=== PATIENT | female | born 1990 | race Hispanic/Latino ===

== ENCOUNTER 2020-08-23 04:17 | Inpatient (IN) | payer OTHER ==
[2020-08-22 11:07] LABS: Absolute Lymphocytes (CBC) 1.7 K/uL (0.7-4.9); Basophils % 0.7 % (0-1.3); Lymphocytes % 23.8 % (15.3-44.8); MPV 9.8 fL (7.6-11.3); RBC Red Blood Cell Count 3.95 M/uL (3.86-4.86)
[2020-08-22 11:10] LABS: Urine Appearance CLEAR; Urine Bilirubin NEGATIVE (NEG); Urine Blood NEGATIVE (NEG); Urine Color YELLOW; Urine Glucose NEGATIVE (NEG); Urine Protein NEGATIVE (NEG); Urine Urobilinogen 0.2 mg/dL (0.2-1.0)
[2020-08-22 11:12] LABS: Protime INR 0.98
[2020-08-22 11:27] LABS: Urine RBC <5 /HPF (NONE SEEN)
[2020-08-22 11:28] LABS: Urine Bacteria <20 /HPF (<20)
[~2020-08-23 04:17] MED LIST: CEFAZOLIN 2 GM in NA CHLORIDE 0.9% 100 ML IVPB SCH; CEFAZOLIN/SWI 2gm 2 GM/20 ML SYR IV SCH; METOCLOPRAMIDE 10 MG/2mL INJ IV SCH; NA CIT/CITRIC AC 30 ML ORAL UDC PO ONE
--- OUTSIDE RECORDS SUMMARY | 2020-08-23 04:20 | XMS REPORT | Continuity of Care Document ---
:1990 Author Organization [facility] t Address [address] [place] [address] Care Team Providers Name Role Phone Doctor Unassigned, Name Attending Clinician Unavailable Holland Ndiaye Attending Clinician Problems This patient has no known problems. Allergies, Adverse Reactions, Alerts This patient has no known allergies or adverse reactions. Medications This patient has no known medications. Procedures This patient has no known procedures. Encounters Start End Encounter Admission Attending Care Care Encounter Source Date/Time Date/Time Type Type Clinicians Facility Department ID 2020-04-05 2020-04-05 Orders Doctor NING [id number] 00:00:00 00:00:00 Only Unassigned, JOSEPHINE [id number] Harman [facility] [id number] [id number] 2020-02-02 2020-02-02 Telemedici SANTOS Beckwith [id number] 12:49:38 14:06:47 ne Visit Demetrice Lino HANDBAG FRAMES INSPECTOR [id number] [facility] [id number] MATERNAL [id number] & CHILD 107 [facility] 2020-01-10 2020-01-10 Telephone SANTOS Beckwith [id number] 00:00:00 00:00:00 Demetrice C HANDBAG FRAMES INSPECTOR [id number] REGIONAL [id number] MATERNAL [id number] & CHILD 107 [facility] Results This patient has no known results.
[2020-08-23 05:17] VITALS: BMI 37.8
[2020-08-23 05:20] VITALS: O2SAT 100
[2020-08-23] MEDS ORDERED: Ringers Lactate 1,000 ML IV SCH (05:30)
[2020-08-23] MEDS ORDERED: Ringers Lactate 1,000 ML IV PRN (05:30)
[2020-08-23] MEDS ORDERED: CEFAZOLIN/SWI 2gm 2 GM/20 ML SYR ONE ×2 (05:46→15:58)
[2020-08-23] MEDS ORDERED: FAMOTIDINE 20 MG/2 ML VIAL IV ONE (06:00)
[2020-08-23] MEDS ORDERED: CARBOPROST TROME 250 MCG/ML IM ONE (07:13)
[2020-08-23] MEDS ORDERED: METHYLERGONOVINE 0.2MG/ML AMP IM ONE (07:13)
[2020-08-23] MEDS ORDERED: MORPHINE SULFATE/PF 1 MG/ML (10 ML AMP) ONE (07:30)
[2020-08-23] MEDS ORDERED: LIDOCAINE 1% MPF 5 ML VIAL ONE (07:31)
[2020-08-23] MEDS ORDERED: OXYTOCIN 10 UNIT/ML ML IV ONE ×2 (07:31→07:57)
[2020-08-23] MEDS ORDERED: BUPIVACAINE 0.75% (PF) 2 ML SP ONE (07:48)
[2020-08-23] MEDS ORDERED: Phenylephrine HCl 10 MG/ML 1 ML VIAL ONE (07:49)
[2020-08-23] MEDS ORDERED: NS 0.9% VIAL 10 ML ONE (07:49)
[2020-08-23] MEDS ORDERED: Oxycodone HCl/Acetaminophen 1 TAB TAB PO PRN (08:21)
[2020-08-23] MEDS ORDERED: ONDANSETRON 4 MG (ODT) TAB PO PRN (08:21)
[2020-08-23] MEDS ORDERED: KETOROLAC 30 MG/ML INJ IM PRN (08:21)
[2020-08-23] MEDS ORDERED: IBUPROFEN 200 MG TAB PO PRN (08:21)
[2020-08-23] MEDS ORDERED: ACETAMINOPHEN 500 MG TAB PO PRN ×2 (08:21)
[2020-08-23] MEDS ORDERED: CEFAZOLIN 1GM (PREMIX IV) 50 ML IV ONE (08:21)
[2020-08-23] MEDS ORDERED: BISACODYL 10 MG RECTAL SUPP PR PRN (08:21)
[2020-08-23] MEDS ORDERED: DIPHENHYDRAMINE 25 MG TAB/CAP PO PRN (08:21)
[2020-08-23] MEDS ORDERED: ONDANSETRON 4 MG/2 ML VIAL IV PRN (08:21)
[2020-08-23] MEDS ORDERED: METHYLERGONOVINE 0.2 MG TAB PO PRN (08:21)
[2020-08-23] MEDS ORDERED: OXYTOCIN/LR 20 UNIT/1,000 ML BAG IV SCH (09:00)
[2020-08-23] MEDS ORDERED: D5LR 1,000 ML with OXYTOCIN 20 UNIT IV SCH ×2 (09:00)
--- NOTE | 2020-08-23 09:07 | OP ---
Surgeon: Jose Antony MD Elsy Romero is a 30-year-old female, 3, para 2, for repeat section. Infection; bloo d loss; anesthetic complications; injury to bladder, bowel, ureter; postoperative complications; clot s in legs; and pneumonia discussed. The patient knows fully well this does not constitute all the po ssible problems that could occur during or following surgery. Dr. Parker for spinal block, Dr. Elif monique for assistant superintendent for curriculum surgeon. After prepping and draping, time-out was performed and Pfannenstiel inc ision was then created over the previous incision site. The incision was carried to the fascia. Sig nificant scarring was encountered as would be expected. Anterior and posterior fascial planes were d eveloped with both blunt and sharp dissection. Underlying rectus muscle . Peritoneum was v char thin and entered easily. Low transverse uterine incision created, a 7 pounds 1-ounce female was delivered without difficulties. Apgars 9 and 9. Cord blood specimen obtained. Placenta removed man ually. Uterus cleared of clot and blood exteriorized. Cervical os dilated with ring clamp. Uterus closed with a running lock stitch of 1 chromic followed by imbricating stitch of 1 chromic. Mild kieran rine hypotonus, 0.2 mg of Methergine IM as well as IV drip Pitocin, massage. Estimated blood loss 85 0-900 cc. Gutters clear of clot and blood. Uterus replaced in the peritoneal cavity. Suture line s howed no further bleeding. Rectus muscles reapproximated with 0 Vicryl, 2 stitches. Fascia closed w ith 1 PDS running from either angle to the midline. Subcutaneous tissue closed with 2-0 plain. Stap les used for the skin. 2 g of Ancef had been given preop. The patient tolerated all procedures well and transferred back to her room in good condition. Final Diagnoses: Repeat section, spinal block anesthesia, mild uterine hypotonus. NBC/MODL Voice ID: [id number] Report ID: [id number]
[2020-08-23] MEDS: METHYLERGONOVINE 0.2 MG TAB PO SCH ×3 (09:34→17:38)
[2020-08-23] MEDS ORDERED: INFLUENZA VACCINE (for 3y+) 0.5 ML DOSE IMVAC ONE (10:00)
[2020-08-23] MEDS ORDERED: CEFAZOLIN 2 GM in NA CHLORIDE 0.9% 100 ML IVPB ONE (15:42)
[2020-08-23] MEDS ORDERED: KETOROLAC 30 MG/ML INJ IV PRN (15:55)
[2020-08-24] MEDS ORDERED: MAGNESIUM HYDROXIDE 8% 30 ML PO PRN (08:21)
--- NOTE | 2020-08-24 10:35 | P.PN ---
Subjective Date of Service: 08/24/20 Chief Complaint: POD 1 s/p RLTCS. Doing well. Yamileth PO. Snider still in place. Subjective: Tolerating diet, Ambulating (No nausea, vomitting, chest pain, or palpitations) Review of Systems 10-point ROS is otherwise unremarkable Physical Examination - Vital Signs Temperature: 97.8 F Blood Pressure: 118/62 Pulse: 63 Respirations: 14 Pulse Ox (%): 97 - Physical Exam General: Alert, In no apparent distress, Oriented x3, Cooperative Neck: Supple Respiratory: Clear to auscultation bilaterally, Normal air movement Cardiovascular: Normal pulses, Regular rate/rhythm Gastrointestinal: Normal bowel sounds, Soft and benign, No rebound, No guarding Musculoskeletal: No clubbing, No swelling, No erythema, No tenderness Integumentary: No rashes Neurological: Normal speech, Normal reflexes 2+, Normal affect External genitalia: No edema Other Physical/Emotional Findings: Fundus firm, below umbilicus. Non tender. Incision clean, dry, intact. Normal lochia - Studies Laboratory Data (last 24 hrs) 08/23/20 16:18: Hct 35.1 L Medications List Reviewed: Yes Assessment And Plan - Plan Snider to be removed today. Saline lock IV. Can d/c IV fluids and if doing well, will remove IV later. Plan for discharge tomorrow Plan to discharge in: 48 Hours (plan to discharge on 08/25/2020) Time Spent Managing PTS Care (In Minutes): 15
[2020-08-24] MEDS: Oxycodone HCl/Acetaminophen 1 TAB TAB PO PRN ×2 (13:40→19:30)
[2020-08-25] MEDS: Oxycodone HCl/Acetaminophen 1 TAB TAB PO PRN ×2 (00:30→08:00)
[2020-08-25 08:19] VITALS: BP 107/56; TEMP 97.7
--- NOTE | 2020-08-25 08:55 | P.DS ---
Admission Date: 08/23/20 Discharge Date: 08/25/20 Disposition: ROUTINE DISCHARGE Discharge Condition: GOOD Reason for Admission: Patient was admitted on 08/23 for RLTCS. Post op course uncomplicated. Procedures: Repeat low transverse C/S Brief History of Present Illness: Pt was admitted for RLTCS. Uncomplicated surgery and post op course Hospital Course: Pt did well s/p RLTCS. Snider was discontinued on POD 1. She was voiding, ambulating, tolerating PO, and passing gas without issue Vital Signs/Physical Exam: Temp Pulse Resp BP Pulse Ox 97.7 F 61 17 107/56 L 97 08/25/20 08:00 08/25/20 08:00 08/25/20 08:00 08/25/20 08:00 08/24/20 12:00 General: Alert, In no apparent distress, Oriented x3 HEENT: Atraumatic Respiratory: Clear to auscultation bilaterally, Normal air movement Cardiovascular: Normal pulses, Regular rate/rhythm Gastrointestinal: Normal bowel sounds, Soft and benign, Non-distended, No tenderness Musculoskeletal: Swelling (mild 1+ b/l leg swelling; no calf tenderness ) Integumentary: No rashes Neurological: Normal speech Other Physical/Emotional Findings: Fundus firm, below umbilicus. Non tender. Incision clean, dry, intact. [place] in place No drainage. Normal lochia Laboratory Data at Discharge: WBC 7.1 K/uL (4.3-10.9) 08/22/20 10:49 Hgb 11.4 g/dL (12.0-15.0) L 08/22/20 10:49 Hct 35.1 % (36.0-45.0) L 08/23/20 16:18 Plt Count 208 K/uL (152-406) 08/22/20 10:49 PT 11.6 SECONDS (9.5-12.5) 08/22/20 10:49 INR 0.98 08/22/20 10:49 APTT 29.5 SECONDS (24.3-36.9) 08/22/20 10:49 Home Medications: Pnv Cmb#95/Ferrous Fumarate/FA [ Tablet] 1 each PO DAILY 01/28/13 Iron,Carb/Vit C/Vit B12/Folic [Iron 100 Plus Tablet] 1 each PO DAILY 08/23/20 Tramadol HCl [Ultram] 50 mg PO Q6H PRN 8 Days #30 tablet 08/25/20 New Medications: Tramadol HCl [Ultram] 50 mg PO Q6H PRN 8 Days #30 tablet PRN Reason: Pain Scale 8-10 (Severe) Followup: Freda Antony MD [Family Provider] - (Follow up with Dr. Antony next week for staple removal then in 6 weeks for post visit.) Time spent managing pt's care (in minutes): 15
--- NOTE | 2020-08-31 11:47 | PREOPHP ---
Date of Admission: 08/23/2020 This is the second dictation of the history and physical. This was done prior to the patient's admis debra. I want to document that the history and physical has been dictated and is apparently lost in t he . History Of Present Illness: 30-year-old 3, para 2, repeat section. Infection; bloo d loss; anesthetic complications; injury to bladder, bowel, ureter; postoperative complications; clot s in legs; and pneumonia discussed. Patient knows fully well this does not constitute all the possib le problems that could occur during or following surgery. Family History: Negative. Past Medical History: Basically negative other than . Allergies: NO ALLERGIES. Medications: No vitamins prior to admission. Physical Examination: HEENT: Clear. Pupils equal, round, reactive to light and accommodation. Conjunctivae well perfused . No oral, lingual, or buccal lesions. Chest and Lungs: Clear. Heart: Without murmurs, thrills, heaves, or rubs. Breasts: Without masses. Abdomen: Term size, baby is vertex. Extremities: Clear without edema, cyanosis, or clubbing. For repeat section. JHONATAN/MATTHEW Voice ID: [id number]
== END 2020-08-25 10:00 | disposition home or self-care (01) | DRG 788 ==
LOC: 2ND-WC 04:17
PROVIDERS: ADMIT Specialist; ATTEND Specialist
PROC: 10D00Z1 Extraction of Products of Conception, Low, Open Approach (ICD-10-PCS; 2020-08-23)
PROC: 10907ZC Drainage of Amniotic Fluid, Therapeutic from Products of Conception, Via Natural or Artificial Opening (ICD-10-PCS; principal; 2020-08-23 07:30)
DX: O34.211 Maternal care for low transverse scar from previous cesarean delivery (principal); O62.2 Other uterine inertia; Z3A.39 39 weeks gestation of pregnancy; Z37.0 Single live birth; Z23 Encounter for immunization; Z20.828 Contact with and (suspected) exposure to other viral communicable diseases
CPT/HCPCS: 36415; 81001; 85014; 85025; 85610; 85730; 86850; 86900; 86901; 88307; 88311; J0690; J2210; J2370; J2405; J2590; J2765; J7120; J7121; U0003

== ENCOUNTER 2022-06-05 17:47 | Emergency (ER) | payer OTHER ==
--- OUTSIDE RECORDS SUMMARY | 2022-06-05 17:50 | XMS REPORT | Continuity of Care Document ---
:1990 Author Organization [facility] t Address [address] [place] [address] Care Team Providers Name Role Phone Demetrice Ndiaye Primary Care Physician [phone] Eugenio Heath Attending Clinician Doctor Unassigned, [place] Attending Clinician Unavailable Demetrice Ndiaye Attending Clinician [phone] Payers Payer Name Policy Type Policy Number Effective Date Expiration Date S ource Problems Condition Condition Condition Status Onset Resolution Last Treating Co mments Source Name Details Category Date Date Treatment Clinician Date Need for Need for Disease Active Unive rs HPV HPV 7-22 ity of vaccin[place] [facility] History of History of Disease Active U nivers bilateral bilateral 7-22 ity of tubal tubal 00:00: [place] ligation ligation 00 Medica l Branch 39 weeks 39 weeks Disease Active Unive rs gestation gestation 6-06 ity of of of 00:00: [place] 00 Medi jose Branch BMI BMI Disease Active Univers 38.0-38.9, 38.0-38.9, 6-06 it y of adult adult 00:00: [place] 00 Medical Branch Disease Active Uni vers with IUD with IUD 2-[address], in place, 00:[place] antepartum antepartum 00 [place] Branch Rubella Rubella Disease Active Overview: Univ ers non-immune non-immune 4-27 Formattin ity of status, status, 00:00: g of this [place] antepartum antepartum 00 note Me dical might be Branch different from the original. Address pp UTI in UTI in Disease Active Overview: Univer s 01-09 Formattin i ty of 00:00: g of this [place] 00 note Medical might be Branch different from the original. LILLY at next visit Supervisio Supervisio Disease Active U nivers n of n of 01-05 ity of high-risk high-risk [place] [facility] Branch Multiparit Multiparit Disease Active U nivers y y 01-05 ity of 00:00: Medical Branch Previous Previous Disease Active Overview: Un kristy 01-05 Formattin ity of delivery delivery 00:00: g of this [place] as affecting affecting 00 note [facility] , , might be Branch antepartum antepartum different from the original. X2 1st [id number] [facility] ROR requested repeat c section see scanned records 01/2013 Well woman Well woman Disease Active U nivers exam exam 2-14 ity of 00:00: [place] 00 Medical Branch BMI BMI Disease Active 2019- Univers 39.0-39.9, 39.0-39.9, 2-14 it y of adult adult 00:00: [place] [address] Medical Branch Encounter Encounter Disease Active 2016-09 Uni vers for for 0-03 ity of surveillan surveillan [place] ce of 00 [facility] other other Branch contracept contracept sonja sonja Obesity in Obesity in Disease Active U nivers 11-11 ity of 00:00: [place] 00 Medical Branch Allergies, Adverse Reactions, Alerts This patient has no known allergies or adverse reactions. Social History Social Habit Start Date Stop Date Quantity Comments Source Exposure to 2022-03-26 2022-04-05 Not sure [facility] SARS-CoV-2 00:00:00 10:13:00 [place] Medical (event) Branch Tobacco use and 2022-04-05 2022-04-05 Smokeless tobacco Un iversity of exposure 00:00:00 00:00:00 non-user [facility] Alcohol intake 2022-04-05 2022-04-05 0 /d University of 00:00:00 00:00:00 [facility] Sex Ass[birth year] At [birth year] Universit y of 00:00:00 00:00:00 [facility] Smoking Status Start Date Stop Date Source Never smoked tobacco [facility] Medications Ordered Filled Start Stop Current Ordering Indication Dosage Frequency Signature Comments Components Source Medication Medication Date Date Medication? Clinician (SIG) Name Name Yes [id number] 1{tbl} Take 1 Univers vitamin 6-08 tablet by ity of w/FA tablet 00:00: mouth [place] 00 daily. [facility] Immunizations Ordered Filled Immunization Date Status Comments Sourc e Immunization Name Name HPV9 2022-04-05 Completed University of 00:00:00 [facility] MMR 2022-02-20 Completed University of 00:00:00 [facility] HPV9 2022-02-19 Completed University of 00:00:00 [facility] TDAP 2021-12-12 Completed University of 00:00:00 [facility] SARS-COV-2 COVID-19 2021-10-16 Completed Unive rsity of PFIZER VACCINE 00:00:00 [facility] SARS-COV-2 COVID-19 2021-03-02 Completed Unive rsity of PFIZER VACCINE 00:00:00 [facility] SARS-COV-2 COVID-19 2021-02-09 Completed Unive rsity of PFIZER VACCINE 00:00:00 [facility] Tetanus/Diptheria 2013-01-08 Completed Univers ity of 00:00:00 [facility] Rubella 2012-08-24 Completed University of 00:00:00 [facility] Tetanus/Diptheria 2005-09-24 Completed Univers ity of 00:00:00 [facility] Vital Signs Vital Name Observation Time Observation Value Comments Source Systolic blood 2022-04-05 15:14:00 120 mm[Hg] Univer sity of pressure [facility] Diastolic blood 2022-04-05 15:14:00 76 mm[Hg] Unive rsity of pressure [facility] Heart rate 2022-04-05 15:14:00 69 /min Universi ty of [facility] Body temperature 2022-04-05 15:14:00 35.72 Kira Univ ersity of [facility] Respiratory rate 2022-04-05 15:14:00 16 /min Univ [facility] Body height 2022-04-05 15:14:00 157.5 cm [facility] Body weight 2022-04-05 15:14:00 95.845 kg [facility] BMI 2022-04-05 15:14:00 38.65 kg/m2 [facility] Procedures Procedure Date / Time Performed Performing Clinician Sonia segura GARDASIL 9 (HPV 9V) 2022-04-05 15:49:50 Demetrice Beckwith [facility] Encounters Start End Encounter Admission Attending Care Care Encounter Source Date/Time Date/Time Type Type Clinicians Facility Department ID 2022-04-05 2022-04-05 Office SANTOS Marroquin [id number] Univers 09:30:00 10:48:29 Visit Eugenio Henriquez FORGE SHOP MACHINE REPAIRER [id number] eliezery [facility] [id number] [place] as MATERNAL [id number] Med ical & CHILD [address] [place] [address] 2020-04-05 2020-04-05 Orders Doctor NING [id number] 00:00:00 00:00:00 Only Unassigned, JOSEPHINE [id number] [place] [facility] [id number] [id number] 2020-02-02 2020-02-02 Telemedici SANTOS Beckwith [id number] 12:49:38 14:06:47 ne Visit Demetrice Lino FORGE SHOP MACHINE REPAIRER [id number] [facility] [id number] MATERNAL [id number] & CHILD [address] [place] [address] 2020-01-10 2020-01-10 Telephone SANTOS Beckwith [id number] 00:00:00 00:00:00 Demetrice Lino FORGE SHOP MACHINE REPAIRER [id number] [facility] [id number] MATERNAL [id number] & CHILD [address] [place] [address] Results This patient has no known results.
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
[2022-06-05] MEDS ORDERED: IBUPROFEN 400 MG TAB ONE (18:06)
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
[2022-06-07 05:36] VITALS: BP 122/74; TEMP 99.1; O2SAT 99
== END 2022-06-05 18:31 | disposition home or self-care (01) ==
LOC: ER 17:47
DX: S16.1XXA Strain of muscle, fascia and tendon at neck level, initial encounter (principal); S29.012A Strain of muscle and tendon of back wall of thorax, initial encounter
CPT/HCPCS: 99284